=== PATIENT | female | born 1980 | race African-American/Black ===

== ENCOUNTER 2023-05-25 11:29 | Emergency (ER) | payer OTHER, SELFPAY ==
--- NOTE | 2023-05-25 11:35 | ED.EXTPRO ---
HPI - Extremity Problem General Chief complaint: Extremity Problem,Nontraumatic Stated complaint: Right Hip/ Leg Pain/LEft Hip Time Seen by Provider: 05/25/23 11:35 Source: patient Mode of arrival: ambulatory Limitations: no limitations History of Present Illness HPI Narrative: Jenniffer is a 43-year-old female patient presenting to clinic today with complaints of bilateral hip pain and and right leg pain. She reports this is an ongoing issue this been going on for over a year. States that has recently gotten more painful. Denies any recent injury or or fall. Denies any back pain. Denies any saddle anesthesia or loss of bowel or bladder. Patient states in 2019 that she was on a vent when she acquired double pneumonia from COVID. States she was in a rehab facility for a long period of time and it took her approximately 1 year to walk again and she was on long haul steroids at that time. Has had x-rays on her hips before that has shown osteoarthritis bilaterally. Has an appointment with her PCP in the next week and is planning on getting x-rays completed at that time. Currently rates her pain 8 at 10. Related Data Home Medications Medication Instructions Recorded Confirmed amlodipine 10 mg tablet 10 mg PO DAILY 05/25/23 05/25/23 atorvastatin 10 mg tablet 10 mg PO DAILY 05/25/23 05/25/23 doxazosin 1 mg tablet 1 mg PO DIRECTED 05/25/23 05/25/23 fluoxetine 20 mg capsule 20 mg PO DAILY 05/25/23 05/25/23 gabapentin 100 mg tablet 100 mg PO DIRECTED 05/25/23 05/25/23 hydrochlorothiazide 25 mg tablet 25 mg PO DAILY 05/25/23 05/25/23 lisinopril 40 mg tablet 40 mg PO DAILY 05/25/23 05/25/23 metformin 500 mg tablet 500 mg PO DIRECTED 05/25/23 05/25/23 naproxen 500 mg tablet 500 mg PO BID 05/25/23 05/25/23 Allergies Allergy/AdvReac Type Severity Reaction Status Date / Time No Known Allergies Allergy Mild Verified 05/25/23 11:31 Review of Systems Review of Systems: Pertinent positives per HPI. Patient denies any fever, chills, rash, headache, visual changes, dizziness, cough, runny nose, sore throat, shortness of breath, chest pain, palpitations, nausea, vomiting, diarrhea, constipation, abdominal pain, or any urinary issues. PMFSH Comments At the time of my signature, I reviewed and agree with the nursing past medical, surgical, social, and family history. There is no relevant family history pertinent to the patient complaint. Exam Narrative: General: Well-developed, morbidly obese, in no apparent distress Head: Normocephalic, atraumatic. Cardio: Regular rate and rhythm, s1 and s2 normal, no murmur appreciated. Resp: Clear to auscultation bilaterally, no rhonchi, rales, wheezing or rubs. Musculoskeletal: No deformity, tender to palpation to bilateral anterior/posterior/lateral hips, having pain radiating down the right lateral thigh to the front anterior leg, grossly normal range of motion, muscle strength strong and equal, peripheral pulse strong, no edema, no cyanosis, normal gait and station Course Course Emergency Course: Portions of this record may have been created with voice recognition software. Level of Care: Express Care Visit Vital Signs Vital signs: Vital Signs Temperature 36.9 C 05/25/23 11:36 Pulse Rate 88 05/25/23 11:36 Respiratory Rate 20 05/25/23 11:36 Blood Pressure 136/74 05/25/23 11:36 Pulse Oximetry 97 05/25/23 11:36 Oxygen Delivery Room Air 05/25/23 11:36 Temperature 36.9 C 05/25/23 11:36 Pulse Rate 88 05/25/23 11:36 Respiratory Rate 20 05/25/23 11:36 Blood Pressure 136/74 05/25/23 11:36 Pulse Oximetry 97 05/25/23 11:36 Oxygen Delivery Room Air 05/25/23 11:36 Vital signs reviewed MDM - Extremity (Nontraumatic) MDM Narrative Medical decision making narrative: At the time of visit patient is resting comfortably on exam table. I suspect the patient has a flare up of osteoarthritis with right-sided sciatica. Toradol 60 mg IM given
[2023-05-25 11:36] VITALS: BP 136/74; PULSE 88; RESP 20; TEMP 36.9; O2SAT 97
[2023-05-25] MEDS: KETOROLAC (*BKC) 60 MG/2 ML VIAL IM (12:13)
== END 2023-05-25 12:28 | disposition home or self-care (01) ==
PROVIDERS: Emergency Provider Nurse Practitioner Family
DX: G89.29 Other chronic pain (principal); M25.552 Pain in left hip; M25.551 Pain in right hip; M54.31 Sciatica, right side; M16.0 Bilateral primary osteoarthritis of hip; E78.00 Pure hypercholesterolemia, unspecified; K21.9 Gastro-esophageal reflux disease without esophagitis; E11.9 Type 2 diabetes mellitus without complications; F32.A Depression, unspecified; Z86.16 Personal history of COVID-19
CPT/HCPCS: 96372; 99213; G0463; J1885